=== PATIENT | female | born 1940 | race Caucasian/White ===

== ENCOUNTER 2019-10-07 10:09 | Inpatient (IN) | payer MEDICARE ==
[~2019-10-07] VITALS: Ht 160 cm; Wt 57.3 kg
[~2019-10-07 10:09] MED LIST: AMLO5 PO; ATOR20 PO; Aspir 8181 MG PO; Azor 10-20 MG1 EACH PO; CARV3.125 PO; CITA20 PO; DIAZ2 PO; DILT30 PO; DOCU100 PO; FAMO20 PO; GABA100 PO; GABA300 PO; GLIM4 PO; GLYB5 PO; HYDACE10B PO; LORA.5 PO; LOSA25 PO; METF500 PO; METF500C PO; NAPR500 PO; NIAC500 PO; Norco 5-325 Ta1 EACH PO; OLME20 PO; PRAV10 PO; PSYL5.85P PO
[2019-10-07] MEDS ORDERED: PLAVIX75 MG PO (10:24)
[2019-10-07] MEDS ORDERED: LOSARTAN-HCTZ1 EAC1 PO (10:25)
[2019-10-07] MEDS ORDERED: GABA100 PO (10:25)
[2019-10-07] MEDS ORDERED: Metformin HCl1000 MG PO (10:26)
[2019-10-07 10:42] LABS: BASOPHILS ABSOLUTE AUTO 0.01 K/mm3 (0.00-0.23); BASOPHILS PERCENT AUTO 0 % (0-2); EOSINOPHILS PERCENT AUTO 0 % (0-6); Hematocrit 35.1 % (33.0-51.0); Hemoglobin 10.9 g/dL (11.5-16.0); IMMATURE GRAN ABSOLUTE AUTO 0.01 K/mm3 (0.00-0.10); IMMATURE GRAN PERCENT AUTO 0 % (0-1); LYMPHOCYTES ABSOLUTE AUTO 0.51 K/mm3 (0.84-5.20); LYMPHOCYTES PERCENT AUTO 6 % (21-46); MONOCYTES ABSOLUTE AUTO 0.41 K/mm3 (0.16-1.47); MONOCYTES PERCENT AUTO 5 % (4-13); Mean Corpuscular HGB 24.7 pg (26.0-34.0); Mean Corpuscular HGB Conc 31.1 g/dL (31.5-36.5); Mean Corpuscular Volume 80 fL (80-100); Mean Platelet Volume 10.4 fL (9.1-12.4); NEUTROPHILS PERCENT AUTO 89 % (41-73); Platelet Count 275 K/mm3 (150-400); RDW Standard Deviation 45.9 fL (35.1-46.3); Red Blood Cell Count 4.41 M/mm3 (3.80-5.20); White Blood Cell Count 8.34 K/mm3 (4.00-11.30)
[2019-10-07 11:11] LABS: Alanine Aminotransfer (ALT/SGP 14 U/L (12-78); Albumin, Blood 3.6 g/dL (3.4-5.0); Albumin/Globulin Ratio 0.9 (0.8-1.8); Alk Phos 74 U/L (50-136); Anion Gap 10 mmol/L (6-16); Aspartate Aminotrans (AST/SGOT 16 U/L (12-37); Bilirubin, Total 0.4 mg/dL (0.1-1.0); Blood Urea Nitrogen 25 mg/dL (8-24); Bun/Creatinine Ratio 28.9 (12.0-20.0); CO2, Blood 25 mmol/L (21-32); Calcium, Blood 8.4 mg/dL (8.5-10.1); Chloride, Blood 105 mmol/L (98-108); Creatinine, Blood 0.86 mg/dL (0.40-1.00); Globulin, Blood 3.8 g/dL (2.2-4.0); Glomerular Filtration Rate >60 (60-); Glucose, Blood 109 mg/dL (70-99); Sodium, Blood 140 mmol/L (136-145); Total Protein, Blood 7.4 g/dL (6.4-8.2)
--- NOTE | 2019-10-07 18:13 | NUR ---
ADMIT NOTE RECEIVED REPORT FROM FABIANO SOLORIO IN ED. PT TO ROOM VIA GURNEY; 1 PERSON ASSIST TO BED. PT A&Ox4; FORGETFUL AT TIMES. PT REPORTS SOB; ON 7L O2 VIA OXYMIZER, PT REPORTS HEMOPTOSIS x3 DAYS; STREAKS OF BLOOD IN SPUTUM. SPO2 >90%. PT REPORTS DIZZINESS AND OVERALL NOT FEELING WELL. PT DENIES PAIN; CHEST PAIN/PRESSURE; AND NAUSEA. ELEVATED BP NOTED; NOTIIFED DR TORRES NEW ORDERS FOR ONE TIME DOSE OF NORVASC ENTERED. PT LACTIC ACID CRITICAL HIGH; NOTIFIED DR TORRES; PT HAS ONLY RECEIVED 500CC BOLUS IN ED; ORDERS TO FINISH THIS BAG OF NS AND AN ADDITIONAL 1L NS A ORDERED. OTHER VSS. NO OTHER ACUTE CHANGES NOTED. WILL CONTINUE TO MONITOR UNTIL REPORT GIVEN TO ONCOMING RN.
--- NOTE | 2019-10-07 22:00 | NUR ---
Assumed Care Report from Shaina Biswas RN. Assumed care at approx 1900. Pt is in airborne precautions d/t pending r/o covid-19 and r/o TB. Pt educated by this RN regarding pending tests. Pt on 7L oxymizer upon arrival, sitting in bed breathing even and unlabored, tachypniec at 21 bpm, speaking approx 4 words at a time - unable to speak in full sentences d/t dyspnea. Pt with an occasional cough, nothing productive yet this shift. At rest, pt breathing comfortably at 16 bpm. Other VSS. See shift assessment for detailed systems assessment. Pt is alert and oriented, expressing needs with call light, bed alarm on for safety d/t mild forgetfulness exhibited by pt as she repeats the same question at times and does not recall that questions have been answered previously. No acute concerns to note at start of shift.
--- NOTE | 2019-10-08 00:31 | NUR ---
IV 3 PIV'S PLACED BUT VEIN BLEW WHEN FLUIDS STARTED. POWER GLIDE PLACED TO LEFT UPPER ARM.
[2019-10-08 04:02] LABS: BASOPHILS ABSOLUTE AUTO 0.02 K/mm3 (0.00-0.23); BASOPHILS PERCENT AUTO 1 % (0-2); EOSINOPHILS ABSOLUTE AUTO 0.02 K/mm3 (0.00-0.68); EOSINOPHILS PERCENT AUTO 1 % (0-6); Hematocrit 29.8 % (33.0-51.0); Hemoglobin 9.2 g/dL (11.5-16.0); IMMATURE GRAN ABSOLUTE AUTO 0.01 K/mm3 (0.00-0.10); IMMATURE GRAN PERCENT AUTO 0 % (0-1); LYMPHOCYTES ABSOLUTE AUTO 0.96 K/mm3 (0.84-5.20); LYMPHOCYTES PERCENT AUTO 28 % (21-46); MONOCYTES ABSOLUTE AUTO 0.27 K/mm3 (0.16-1.47); MONOCYTES PERCENT AUTO 8 % (4-13); Mean Corpuscular HGB 24.7 pg (26.0-34.0); Mean Corpuscular HGB Conc 30.9 g/dL (31.5-36.5); Mean Corpuscular Volume 80 fL (80-100); Mean Platelet Volume 10.5 fL (9.1-12.4); NEUTROPHILS ABSOLUTE AUTO 2.17 K/mm3 (1.96-9.15); NEUTROPHILS PERCENT AUTO 63 % (41-73); Platelet Count 228 K/mm3 (150-400); RDW Standard Deviation 46.7 fL (35.1-46.3); Red Blood Cell Count 3.72 M/mm3 (3.80-5.20); White Blood Cell Count 3.45 K/mm3 (4.00-11.30)
[2019-10-08 04:20] LABS: Alanine Aminotransfer (ALT/SGP 11 U/L (12-78); Albumin/Globulin Ratio 0.9 (0.8-1.8); Alk Phos 62 U/L (50-136); Anion Gap 6 mmol/L (6-16); Aspartate Aminotrans (AST/SGOT 13 U/L (12-37); Bilirubin, Total 0.5 mg/dL (0.1-1.0); Blood Urea Nitrogen 17 mg/dL (8-24); Bun/Creatinine Ratio 24.2 (12.0-20.0); CO2, Blood 26 mmol/L (21-32); Calcium, Blood 7.9 mg/dL (8.5-10.1); Chloride, Blood 108 mmol/L (98-108); Globulin, Blood 3.3 g/dL (2.2-4.0); Glomerular Filtration Rate >60 (60-); Glucose, Blood 99 mg/dL (70-99); Potassium, Blood 3.8 mmol/L (3.5-5.5); Sodium, Blood 140 mmol/L (136-145); Total Protein, Blood 6.3 g/dL (6.4-8.2)
--- NOTE | 2019-10-08 05:02 | NUR ---
Shift Summary Pt is in airborne isolation for Rule out COVID-10 and Rule out TB; labs sent. Pt requires 7L Oxymizer for oxygen saturations 90-93%. Overall, pt breathing is even and unlabored. Pt is quite conversive and sometimes becomes SOB with conversation. She also has mild BALDERRAMA going from bed to BSC. Powerglide to MAGDALENE placed tonight, patent and draws morning labs. Pt is alert and oriented, mentation has not changed overnight. Pt with some forgetfulness with direction and education - she repeats the same question to staff regardless of being educated on the answer multiple times and in multiple different ways. She is pleasant and calm. Will continue to monitor
--- NOTE | 2019-10-08 18:43 | NUR ---
SHIFT NOTE PT HAS BEEN RESTING WELL IN BED T/O THE SHIFT. PT TALING IN FULL SENTENCES, DOES HAVE INCREASED DYSPNEA WITH TALKING. SPO2 HAS REMAINED BETWEEN 90-94%, DID NOT TOLERATED WELL A TITRATION DOWN OF 02. PCR AND MRSA OF NARES OBTAINED AND SENT TO LAB. PT REPORTS CHRONIC BACK PAIN THAT HAS BEEN WELL CONTROLLED WITH NORCO X2 TODAY. PT WITH MORE PRONOUNCED CRACKLES IN LT UPPER AND LOWER LOBES WITH FINE CRACKLES NOTED TO RT UPPER LOBES AND DIMNISEHD RT LOWER LOBE. VSS T/O THE DAY. PT IS FORGETFUL, BUT USES CALL LIGHT APPROPRIATELY, TELLS STORIES OF HER YOUTH
[2019-10-08 18:47] LABS: Adenovirus Not Detected (NOT DETECT); Bordetella pertussis Not Detected (NOT DETECT); Chlamydophila pneumoniae Not Detected (NOT DETECT); Coronavirus 229E Not Detected (NOT DETECT); Coronavirus HKU1 Not Detected (NOT DETECT); Coronavirus NL63 Not Detected (NOT DETECT); Coronavirus OC43 Not Detected (NOT DETECT); Human Metapneumovirus Not Detected (NOT DETECT); Human Rhinovirus/Enterovirus Not Detected (NOT DETECT); Influenza A/2009-H1 Not Detected (NOT DETECT); Influenza A/H1 Not Detected (NOT DETECT); Influenza A/H3 Not Detected (NOT DETECT); Influenza B Not Detected (NOT DETECT); Mycoplasma pneumoniae Not Detected (NOT DETECT); Parainfluenza Virus 1 Not Detected (NOT DETECT); Parainfluenza Virus 2 Not Detected (NOT DETECT); Parainfluenza Virus 3 Not Detected (NOT DETECT); Parainfluenza Virus 4 Not Detected (NOT DETECT); Respiratory Syncytial Virus Not Detected (NOT DETECT)
--- NOTE | 2019-10-08 20:19 | NUR ---
Assumed Care Upon initial assessment, pt sitting on edge of bed, tremulous and with apparent anxiety. Pt speaking erratically and without cohesion to sentences. pt fully alert, oriented only to person and date of . When asked for location pt talking about her son and the weather, pt redirected to answer loction question and pt becomes tearful and talks about her family again. Pt unable to tell this RN that she is in hospital. Pt asked about year: she states it's "2000" and when asked about the president, she replies "clinten". When reoriented, pt able to recall correct year and president. after approx 1 minute, pt answers orientation questions as 2000 and that the president is clinten. 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 fleet manager/dispatch aware and call made to Provider for update on pt condition.
--- NOTE | 2019-10-08 21:23 | NUR ---
CALL TO SON, IBIS [phone]. SON UPDATED ON PT'S MENTATION CONDITION. BASELINE PER PT'S SON IS "MY MOM IS SHARP, SHE DOES ALL THE BILLS" PT'S SON ALSO MENTIONED TO THIS RN "I WAS CONCERNED BECAUSE AT 4PM THIS AFTERNOON MY MOM CALLED ME ALL CONFUSED. I THOUGHT MAYBE IT WAS THE MEDICATION SHE WAS TAKING". PROVIDER MADE AWARE OF CONDITION. PT TO CT WITH THIS RN AND PCU AIRCRAFT STEEL FABRICATORFARIHA OBTAINED BY RT
[2019-10-08 21:25] LABS: PCO2 Arterial 32.5 mmHg (35-45); PO2 Arterial 67.6 mmHg (80-100); pH Blood Arterial 7.44 (7.35-7.45)
[2019-10-09 04:11] LABS: Magnesium, Blood 2.3 mg/dL (1.6-2.4)
[2019-10-09 04:30] LABS: Percent Saturation 4.3 % (15.0-50.0); Phosphorus, Blood 4.2 mg/dL (2.5-4.9)
--- NOTE | 2019-10-09 05:20 | NUR ---
Shift Summary Pt remains confused throughout entire shift. Slept approx 3 hrs. Pt set off bed alarm frequently, did not remember to use call light. Pt is overall confused, paranoid, anxious. CT scan completed overnight, ABG completed overnight. provider called multiple times regarding concern for pt mentation status and orders recieved.n Pt oriented only to self. VSS, oxygenation remains at 90-93% on 7L oxymizer. MAGDALENE powerglide s/l, flushes and draws morning labs. See shift assessment and previous notes for updates on events overnight. Will continue to monitor.
[2019-10-09 13:08] LABS: QUANTIFERON MITOGEN VALUE 7.14 IU/mL (.); QUANTIFERON TB1 AG VALUE 0.12 IU/mL (.); QUANTIFERON-TB GOLD PLUS Negative (Negative)
--- NOTE | 2019-10-09 16:30 | NUR ---
SHIFT NOTE PT HAS BEEN ALERT, ANSWERS MOST QUESTIONS APPROPRIATELY IN T/O THE DAY, BUT HAS TO BE EDUCATED NUMEROUS TIMES ABOUT THE SAME TOPIC. PT RECOGNIZED THIS RN UPON RETURNING THIS AM THAT I PROVIDED HER CARE YESTERDAY. PT STS THAT SHE IS SCARED AND CONFUSED THIS AM SHE REMEMBERS BEING TAKEN TO CT "AND PUT IN A BIG MACHINE", PT IS EDUCATED ABOUT CT AND RESULTS, PT LATERS ASKS ABOUT THE CT IN THE NIGHT, DOES NOT RECALL THE EDUCATION SHE RECIEVED FROM EARLIER. PT DOES NOT RECALL THE EVENTS FROM LAST NOC LEADING UP TO GOING TO CT. PT SETS OF HER BED ALARM NUMEROUS TIMES IN THE MORNING, IT IS NOTED THAT PT DOES NOT ATTEMPT TO EXIT THE BED SHE IS REPOSITIONING. BUT PT DOES BECOME UPSET AND ALARMED BY THE BED ALARM AND IS TEARFUL SHE CALLS HER FRIEND LOLA AND ASKS HER TO COME GET HER. THIS RN EDUCATED PT HOW TO SIT IN THE BED TO AVOID ACTIVATING THE BED ALARM, PT DID EXPRESS UNDERSTANDING OF THIS TEACHING AND ONLY ACTIVATED HER BED ALARM A FEW OTHER TIMES T/O THE DAY, SHE FORGOT TO USE HER CALL LIGHT TO USE THE BEDSIDE COMMODE. PT WAS VERY ANXIOUS THIS AM, SHE WAS REDIRECTED WELL WITH VERBAL REASSURANCE. O2 IS DECREASED TO 3L WHICH IS TOLERATED WELL, PER DR MEHTA SPO2 SHALL BE AT 88% OR GREATER. PT WAS GIVEN XANEX FOR ANXIETY WHICH WAS TOLERATED WELL, PT DID SLEEP IN THE AFTERNOON AND APPEARED TO HAVE HAD RESTFUL SLEEP.
--- NOTE | 2019-10-09 17:38 | NUR ---
O2 TITRATED TO 2L
--- NOTE | 2019-10-10 03:24 | NUR ---
COVID-19 results are negative.
[2019-10-10 04:40] LABS: BASOPHILS ABSOLUTE AUTO 0.01 K/mm3 (0.00-0.23); BASOPHILS PERCENT AUTO 0 % (0-2); EOSINOPHILS PERCENT AUTO 0 % (0-6); Hematocrit 33.3 % (33.0-51.0); Hemoglobin 10.4 g/dL (11.5-16.0); IMMATURE GRAN ABSOLUTE AUTO 0.01 K/mm3 (0.00-0.10); IMMATURE GRAN PERCENT AUTO 0 % (0-1); LYMPHOCYTES ABSOLUTE AUTO 1.03 K/mm3 (0.84-5.20); LYMPHOCYTES PERCENT AUTO 22 % (21-46); MONOCYTES ABSOLUTE AUTO 0.57 K/mm3 (0.16-1.47); MONOCYTES PERCENT AUTO 12 % (4-13); Mean Corpuscular HGB 24.1 pg (26.0-34.0); Mean Corpuscular HGB Conc 31.2 g/dL (31.5-36.5); Mean Platelet Volume 10.2 fL (9.1-12.4); NEUTROPHILS ABSOLUTE AUTO 3.11 K/mm3 (1.96-9.15); NEUTROPHILS PERCENT AUTO 66 % (41-73); Platelet Count 280 K/mm3 (150-400); RDW Coefficient Variation 15.8 % (11.7-14.2); RDW Standard Deviation 44.5 fL (35.1-46.3); Red Blood Cell Count 4.32 M/mm3 (3.80-5.20); White Blood Cell Count 4.73 K/mm3 (4.00-11.30)
[2019-10-10 04:41] LABS: Mean Corpuscular Volume 77 fL (80-100)
[2019-10-10 04:58] LABS: Alanine Aminotransfer (ALT/SGP 13 U/L (12-78); Albumin, Blood 3.3 g/dL (3.4-5.0); Albumin/Globulin Ratio 0.9 (0.8-1.8); Alk Phos 59 U/L (50-136); Anion Gap 10 mmol/L (6-16); Aspartate Aminotrans (AST/SGOT 14 U/L (12-37); Bilirubin, Total 0.4 mg/dL (0.1-1.0); Blood Urea Nitrogen 23 mg/dL (8-24); Bun/Creatinine Ratio 26.7 (12.0-20.0); CO2, Blood 25 mmol/L (21-32); Calcium, Blood 8.8 mg/dL (8.5-10.1); Chloride, Blood 102 mmol/L (98-108); Creatinine, Blood 0.86 mg/dL (0.40-1.00); Globulin, Blood 3.8 g/dL (2.2-4.0); Glomerular Filtration Rate >60 (60-); Glucose, Blood 108 mg/dL (70-99); Potassium, Blood 3.9 mmol/L (3.5-5.5); Sodium, Blood 137 mmol/L (136-145); Total Protein, Blood 7.1 g/dL (6.4-8.2)
--- NOTE | 2019-10-10 05:55 | NUR ---
Shift Summary Pt alert this shift. Oriented to person, date of , year, and president. Pt not oriented to location, sets off bed alarm frequently and is forgetful. No paranoia noted this shift. Xanex given with noc medications per pt request and pt able to sleep approx 7 hours. Pt voiding well this shift. VSS. She is SBA and moderately stable on feet with transfers. Overall, pt had an uneventful night. no changes on telemetry. Bed alarm has been on all shift for safety, pt redirected multiple times without successful following of directions. Pills whole with water. No acute changes to initial shift assessment.
--- NOTE | 2019-10-10 08:47 | NUR ---
AM NOTE... ASSUMED CARE OF PT APROX 0700. PT IS A&Ox4 WITH MOMENTS OF FORGETFULNESS. PT'S VS STABLE AT THIS TIME, SHE IS ON 2L NC WITH O2 SATS>88% AT REST. L/S CLEAR T/O A LITTLE COARSE IN THE BASES. NO EDEMA NOTED ON ASSESSMENT. BT PRESENT AND NORMOACTIVE. PT IS VERY ANXIOUS TO D/C HOME TODAY TO HELP TAKE CARE OF HER HORSES. PT IS SBA TO THE BSC OR BATHROOM. CALL LIGHT IN REACH WILL CONTINUE TO MONITOR
--- NOTE | 2019-10-10 09:50 | NUR ---
Per Dr. Sánchez, the pt needs to have the home O2 evaluation done before discharge.
[2019-10-10] MEDS ORDERED: ALBU2.5V5 INH (10:40)
[2019-10-10] MEDS ORDERED: AZIT500 PO (10:45)
[2019-10-10] MEDS ORDERED: FERSU300 PO (10:48)
[2019-10-10] MEDS ORDERED: Duoneb 2.5-0.5 M3 ML INH (10:48)
[2019-10-10] MEDS ORDERED: CEFP200 PO (10:49)
[2019-10-10] MEDS ORDERED: PRED20 PO (10:49)
--- NOTE | 2019-10-10 14:12 | NUR ---
PT D/C HOME... PT D/C'D HOME WITH HER SON. PT DISCHARGE AND NEW MEDICATION EDUCATION WAS PROVIDED TO THE PT AND HER SON, BOTH VERBALIZED THIER UNDERSTANDING. POWERGLIDE WAS REMOVED WNL. ALL OF PT'S BELONGINGS PACKED AND SENT WITH THE PT. PRIOR TO THE PT'S D/C HER NEW MEDICATIONS WERE CALLED INTO HER PHARMACY OF CHOICE, PER THE PHARMACY IT WAS GOING TO CLOSE AT 1300 AND NOT BE OPEN THE NEXT DAY , THE PT'S SON WAS NOT GOING TO BE AVAILABLE TO PICK HER UP BEFORE 1400. IT WAS OFFERED TO THE PT THAT WE WOULD CALL ANOTHER PHARMACY FOR HER MEDICATIONS THAT WOULD STILL BE OPEN BY THE TIME HER SON WAS AVAILABLE TO COME PICK HER UP. THIS RN AND THE TOP BOTTOM ATTACHING MACHINE OPERATOR OFFERED TO CALL THE SON AND TO HELP MAKE OTHER ARRAINGMENTS BECAUSE IT WAS IMPORTANT THAT THE PT GET HER NEW ANTIBIOTICS AND OTHER MEDICATIONS. PT STATED HER UNDERSTANDING, DID NOT WANT STAFF TO CONTACT HER SON AND SAID SHE WOULD DO SO HERSELF. APROX 10 MINUTES LATER THE PT CALLED THE EDUCATION DIAGNOSTICIAN INTO THE ROOM AND TOLD HER "ITS OKAY MY NEIGHBOR IS GOING TO LAND INSPECTOR MY NEW PILLS FOR ME." DURING DISCHARGE EDUCATION WITH THE SON THE SON MADE THE COMMENT "MOM I'LL GO INTO TOWN ON SATURDAY AND LAND INSPECTOR YOUR NEW PILLS." THIS RN STATED "I WAS UNDER THE IMPRESSION THAT THE NEIGHBOR WAS GOING TO LAND INSPECTOR HER MEDICATIONS." THE SON THEN SATED "OH NO SHE'LL BE FINE UNTIL SATURDAY." THIS RN ATTEMPTED TO EDUCATE THE PT AND SON ON THE IMPORTANCE OF TAKING MEDICATIONS DIRECTED AND NOT SKIPPING DOSES OVER SEVERAL DAYS. BOTH STATED THEIR UNDERSTANDING AND LEFT.
== END 2019-10-10 13:48 | disposition home or self-care (01) | DRG 871 ==
LOC: ER 10:09 → ERHOLD 11:50 → PCU 11:50
PROVIDERS: Emergency Medicine; Hospitalist; Internal Medicine Pulmonary Disease; Nurse Practitioner Acute Care; ADMIT Family Medicine
PROC: 8E0ZXY6 Isolation (ICD-10-PCS; principal; 2019-10-07)
DX: A41.9 Sepsis, unspecified organism (principal); J96.20 Acute and chronic respiratory failure, unspecified whether with hypoxia or hypercapnia; J18.9 Pneumonia, unspecified organism; G93.40 Encephalopathy, unspecified; R65.20 Severe sepsis without septic shock; E78.00 Pure hypercholesterolemia, unspecified; Z96.653 Presence of artificial knee joint, bilateral; Z87.891 Personal history of nicotine dependence; E11.42 Type 2 diabetes mellitus with diabetic polyneuropathy; E11.51 Type 2 diabetes mellitus with diabetic peripheral angiopathy without gangrene; J98.4 Other disorders of lung; J43.2 Centrilobular emphysema; G89.29 Other chronic pain; M48.00 Spinal stenosis, site unspecified; D50.9 Iron deficiency anemia, unspecified; F41.9 Anxiety disorder, unspecified; Z79.84 Long term (current) use of oral hypoglycemic drugs; C80.1 Malignant (primary) neoplasm, unspecified
CPT/HCPCS: 0099U; 36415; 36600; 70450; 71045; 80053; 82607; 82728; 82746; 82803; 82947; 83540; 83550; 83605; 83735; 84100; 85025; 86480; 87040; 93005; 93010; 94640; 94760; 94761; 94762; 96361; 96365; 96367; 96372-59; 99285-25; A9270-GY; C1751; J0456; J0696; J1650; J2916; J7030; J7050; J7512; U0003

== ENCOUNTER 2019-11-21 05:27 | Inpatient (IN) | payer MEDICARE ==
[~2019-11-21] VITALS: Ht 160 cm; Wt 53.0 kg
[~2019-11-21 05:27] MED LIST changes: +ALBU2.5V5 INH; +AZIT500 PO; +CEFP200 PO; +Duoneb 2.5-0.5 M3 ML INH; +FERSU300 PO; +LOSARTAN-HCTZ1 EAC1 PO; +PLAVIX75 MG PO; +PRED20 PO
[2019-11-21 05:46] LABS: PCO2 Arterial 36.4 mmHg (35-45); PO2 Arterial 111 mmHg (80-100); pH Blood Arterial 7.44 (7.35-7.45)
[2019-11-21 05:52] LABS: BASOPHILS ABSOLUTE AUTO 0.03 K/mm3 (0.00-0.23); BASOPHILS PERCENT AUTO 1 % (0-2); EOSINOPHILS ABSOLUTE AUTO 0.06 K/mm3 (0.00-0.68); EOSINOPHILS PERCENT AUTO 1 % (0-6); Hemoglobin 11.7 g/dL (11.5-16.0); IMMATURE GRAN ABSOLUTE AUTO 0.01 K/mm3 (0.00-0.10); IMMATURE GRAN PERCENT AUTO 0 % (0-1); LYMPHOCYTES ABSOLUTE AUTO 1.18 K/mm3 (0.84-5.20); LYMPHOCYTES PERCENT AUTO 26 % (21-46); MONOCYTES ABSOLUTE AUTO 0.35 K/mm3 (0.16-1.47); MONOCYTES PERCENT AUTO 8 % (4-13); Mean Corpuscular HGB 24.7 pg (26.0-34.0); Mean Corpuscular Volume 83 fL (80-100); Mean Platelet Volume 10.2 fL (9.1-12.4); NEUTROPHILS ABSOLUTE AUTO 2.95 K/mm3 (1.96-9.15); NEUTROPHILS PERCENT AUTO 64 % (41-73); Platelet Count 270 K/mm3 (150-400); RDW Coefficient Variation 18.8 % (11.7-14.2); RDW Standard Deviation 56.5 fL (35.1-46.3); Red Blood Cell Count 4.73 M/mm3 (3.80-5.20); White Blood Cell Count 4.58 K/mm3 (4.00-11.30)
[2019-11-21 06:14] LABS: Alanine Aminotransfer (ALT/SGP 14 U/L (12-78); Albumin, Blood 3.3 g/dL (3.4-5.0); Albumin/Globulin Ratio 0.9 (0.8-1.8); Alk Phos 65 U/L (50-136); Anion Gap 8 mmol/L (6-16); Aspartate Aminotrans (AST/SGOT 16 U/L (12-37); Bilirubin, Total 0.4 mg/dL (0.1-1.0); Blood Urea Nitrogen 26 mg/dL (8-24); Bun/Creatinine Ratio 25.5 (12.0-20.0); CO2, Blood 27 mmol/L (21-32); Calcium, Blood 8.3 mg/dL (8.5-10.1); Chloride, Blood 104 mmol/L (98-108); Creatinine, Blood 1.02 mg/dL (0.40-1.00); Globulin, Blood 3.7 g/dL (2.2-4.0); Glomerular Filtration Rate 55 (60-); Glucose, Blood 175 mg/dL (70-99); Magnesium, Blood 1.7 mg/dL (1.6-2.4); Potassium, Blood 3.9 mmol/L (3.5-5.5); Sodium, Blood 139 mmol/L (136-145); Troponin I <0.015 ng/mL (0.000-0.040)
--- NOTE | 2019-11-21 11:15 | NUR ---
[place] of Care: Patient arrived from ED at 1045hr, via stretcher, accompanied by ED nurse. Patient sleeping on arrival, but easily roused to verbal stimuli, oriented x4. Arrived on BiPAP at 12/8/60%, spO2-98-100%. Patient appeared comfortable on BiPAP and denies dyspnea/SOB, stating breathing "feels better". Attempted to remove BiPAP approx 30min after arrival and placed patient on 10L/high-flow NC. Patient remained comfortable, denies SOB, but SpO2 decreased to mid 80's. Patient then placed back on BiPAP at 12/5/45%, spO2 increased to 96%. Lazaro cath placed approx 1hr after arrival to unit, draining clear yellow urine. Peripheral IV x1 to lt AC patent and intact. Denies pain or discomfort, sleeping when not stimulated by staff. Dr. Putnam consulted per Dr. Klein. Dr. Putnam in to see patient shortly after arrival to unit. No new orders received at that time. Plan to maintain use of BiPAP at this time with breaks as tolerated. Will continue to monitor.
[2019-11-21 11:31] LABS: Source, Urine Catheter
[2019-11-21 11:40] LABS: Appearance, Urine Clear (Clear); Bilirubin, Urine Neg (Neg); Blood, Urine Neg (Neg); Color, Urine Yellow (P-Yellow); Glucose Qualitative, Urine Neg (Neg); Ketones, Urine Neg (Neg); Leukocyte Esterase, Urine Neg (Neg); Nitrite, Urine Neg (Neg); Protein, Urine Neg (Neg); Specific Gravity, Urine 1.015 (1.003-1.022); Urobilinogen, Urine NORM (Normal)
[2019-11-21] MEDS ORDERED: KEFLEX500 MG PO (12:42)
--- NOTE | 2019-11-21 12:51 | NUR ---
echocardiogram complete
--- NOTE | 2019-11-21 15:16 | NUR ---
Pt resting in bed and wearing BIPAP. Pt is A&OX4 and denies pain at this time. Engaged in therapeutic discussion regarding plan of care. Explored reasons for Pt not wanting pursue biopsy. Pt states "If I'm opened up, it will cause it to spread". Educated Pt on procedure could possibly done with bronchoscopy. Pt asks "what would you do". Explained to Pt this RN is not in her position and could not provide an apprpriate answer. Continued therapeutic listening and continued to explore fears. Offered emotional support as Pt is tearful throughout visit. Discussed options such hospice, pursuing biopsy to determine cancer treatment options or maintaining status quoe. Pt reports she would like to pursue biopsy. Continued therapeutic listening. Pt expresses appreciation of visit. Spoke with Bedside RN Jair, discussed case and Pt's decision to pursue biopsy. Jair reports decision will be relayed to Intesivist. Called and spoke with Pt's son Hakan. Updated Hakan on plan of care and Pt's decision to pursue biopsy. Hakan expresses appreciation of call and reports plan to visit with Pt a little later today. Palliative Care will remain available for therapeutic visits.
--- NOTE | 2019-11-21 18:36 | NUR ---
Shift Summary: No significant changes throughout remainder of shift. Patient able to tolerate short breaks from BiPAP, approx 15-20min. Patient continues to deny dyspnea/SOB and appear comfortable while off BiPAP, but spO2 decreases to mid 80's, on 10-15L per high-flow NC. BiPAP settings remain at 12/5/45-50%. X1 prn Ativan given this evening for anxiety r/t BiPAP mask, good effect noted. Peripheral IV remains patent and intact, infusing without difficulty. Lzaaro cath remains patent and intact, draining clear yellow urine. Tolerates PO water without difficulty. Sleeping at this time and appears comfortable. Will continue to monitor until report to NOC shift RN.
--- NOTE | 2019-11-21 20:04 | NUR ---
ASSUMED PT CARE FROM SHELLY RN AT 1915 PT SITTING UPRIGHT IN BED WITH BIPAP IN PLACE; 05/08; FIO2 45%. PT TOLERATING WELL, BUT REQUESTING WATER AND BIPAP BREAK. RT AT BEDSIDE GIVING BREATHING TREATMENT THROUGH BIPAP AT TIME OF REQUEST; THEREFORE, BREAK GIVEN AFTER TREATMENT WAS COMPLETE. PT PLACED ON HIFLOW NC AT 15L WITH OXYGEN SATURATIONS 85-89%. PT COUGHING UP COPIOUS AMOUNTS OF THIN, WHITE SECRETIONS. LUNG SOUNDS ARE NOTED TO HAVE INSPIRATORY CRACKLES T/O ALL LOBES. PT NOTED TO BE NSR WITH HR 70'S; BP'S STABLE, SEE FLOWSHEET. VACA CATHETER IS PATENT AND DRAINING CLEAR, YELLOW URINE TO GRAVITY. PT GIVEN APPROXIMATELY 15 MINUTE BREAK FROM BIPAP FOR ORAL CARE, HS MEDS, AND WATER BREAK. PLACED BACK ON BIPAP WITH SAME SETTINGS; BIOX LOW 90'S. PT VERY EMOTIONAL REGARDING NEW DX OF LUNG CANCER. ASKING IF SHE CAN GO HOME AFTER HER BIOPSY. INFORMED PT THAT THERE IS ALWAYS THE POSSIBILITY FOR COMPLICATIONS WITH ANY PROCEDURE; NONETHELESS, HER OXYGEN REQUIREMENTS ARE TOO HIGH AT THIS POINT TO BE ABLE TO GO HOME. PT APPEARS VERY FEARFUL AND ANXIOUS REGARDING NEW DX. CALL LIGHT LEFT WITHIN REACH. PT ABLE TO MAKE HER NEEDS KNOWN. VERY PLEASANT AND COOPERATIVE WITH CARES.
--- NOTE | 2019-11-22 02:53 | NUR ---
UPDATE CALL OUT TO DR. TARANGO IN REGARDS TO RECEIVING ORDERS FOR AIRVO. PT TOLERATED BIPAP LONG SHE COULD, BUT STARTED ASKING FOR MORE FREQUENT BREAKS. OXYGEN SATURATIONS WEREN'T MAINTAINING ON HIFLOW NC AT 15L. THEREFORE, REQUESTED AIRVO FOR BREAKS INSTEAD. PT IS CURRENTLY AT 50L AND 82% WITH BIOX AT 92%. PT VERY GRATEFUL AND MORE COMFORTABLE. WILL CONTINUE TO MONITOR NEURO STATUS. PT CONTINUING TO COUGH UP COPIOUS AMOUNTS OF THIN WHITE SECRETIONS. LUNG SOUNDS REMAIN COARSE RALES T/O ALL LOBES.
[2019-11-22 03:45] LABS: BASOPHILS ABSOLUTE AUTO 0.01 K/mm3 (0.00-0.23); BASOPHILS PERCENT AUTO 0 % (0-2); EOSINOPHILS ABSOLUTE AUTO 0.05 K/mm3 (0.00-0.68); EOSINOPHILS PERCENT AUTO 1 % (0-6); Hematocrit 35.1 % (33.0-51.0); Hemoglobin 10.6 g/dL (11.5-16.0); IMMATURE GRAN ABSOLUTE AUTO 0.01 K/mm3 (0.00-0.10); IMMATURE GRAN PERCENT AUTO 0 % (0-1); LYMPHOCYTES ABSOLUTE AUTO 0.86 K/mm3 (0.84-5.20); LYMPHOCYTES PERCENT AUTO 16 % (21-46); MONOCYTES ABSOLUTE AUTO 0.52 K/mm3 (0.16-1.47); MONOCYTES PERCENT AUTO 10 % (4-13); Mean Corpuscular HGB 25.1 pg (26.0-34.0); Mean Corpuscular HGB Conc 30.2 g/dL (31.5-36.5); Mean Corpuscular Volume 83 fL (80-100); Mean Platelet Volume 10.2 fL (9.1-12.4); NEUTROPHILS ABSOLUTE AUTO 3.88 K/mm3 (1.96-9.15); NEUTROPHILS PERCENT AUTO 73 % (41-73); Platelet Count 253 K/mm3 (150-400); RDW Standard Deviation 57.2 fL (35.1-46.3); Red Blood Cell Count 4.23 M/mm3 (3.80-5.20); White Blood Cell Count 5.33 K/mm3 (4.00-11.30)
[2019-11-22 04:03] LABS: Albumin, Blood 2.8 g/dL (3.4-5.0); Anion Gap 6 mmol/L (6-16); Blood Urea Nitrogen 18 mg/dL (8-24); Bun/Creatinine Ratio 19.1 (12.0-20.0); CO2, Blood 28 mmol/L (21-32); Calcium, Blood 8.1 mg/dL (8.5-10.1); Chloride, Blood 105 mmol/L (98-108); Creatinine, Blood 0.94 mg/dL (0.40-1.00); Glomerular Filtration Rate >60 (60-); Glucose, Blood 99 mg/dL (70-99); Magnesium, Blood 1.9 mg/dL (1.6-2.4); Phosphorus, Blood 3.9 mg/dL (2.5-4.9); Potassium, Blood 4.2 mmol/L (3.5-5.5); Sodium, Blood 139 mmol/L (136-145)
--- NOTE | 2019-11-22 06:40 | NUR ---
END OF SHIFT SUMMARY PT TOLERATING AIRVO MUCH BETTER THAN BIPAP. AIRVO CURRENTLY AT 50L WITH 75% FIO2; BIOX REMAINS LOW 90'S. PT IS ALERT AND ORIENTED AND ABLE TO MAKE NEEDS KNOWN. APPEARS FORGETFUL AT TIMES SHE WAS NOTED TO REPEATEDLY ASK THE SAME QUESTIONS A FEW TIMES. LUNG SOUNDS REMAIN COARSE RALES T/O WITH PRODUCTIVE COUGH; PRODUCING COPIOUS AMOUNTS OF THIN WHITE SECRETIONS. PT HAS BEEN IN NSR HR 70'S; BP'S STABLE, SEE FLOWSHEET. NS WITH 20KCL INFUSING AT 75MLS/HR VIA PERIPHERAL IV. VACA CATHETER REMAINS PATENT AND DRAINING CLEAR, YELLOW URINE TO GRAVITY. PT REMAINS EMOTIONAL REGARDING LUNG CANCER DX AND FEARFUL OF THE UNKNOWN. ENCOURAGED HER TO TAKE IT STEP BY STEP AND DAY BY DAY. SHE CONTINUES TO ASK ABOUT GOING HOME; HOWEVER, ALSO WANTING TO GET TREATMENT. SHE APPEARS TO BE CONFUSED REGARDING PROCESSES'S; THEREFORE, MAY NEED PROCEDURES AND PROCESSES'S EXPLAINED IN LAYMENS TERMS. REITERATED HER HIGH OXYGEN REQUIREMENT AT THIS TIME AND HOW SHE WOULD NOT BE ABLE TO GO HOME WITH HOW MUCH OXYGEN AND FLOW SHE IS CURRENTLY REQUIRING. PT APPEARS TO UNDERSTAND, BUT THEN WILL ASK THE SAME QUESTIONS AGAIN. REPORT HANDED OFF TO FABIANO BRAVO. PT HAS CALL LIGHT WITHIN REACH AND IS ABLE TO MAKE HER NEEDS KNOWN.
--- NOTE | 2019-11-22 08:34 | NUR ---
[place] of Care: Care assumed at 0700hr. Patient A/O x4, sitting upright in bed watching tv. Denies pain, discomfort, SOB, or dyspnea. VSS, spO2-95-97% on Airvo NC at 55L/70%. Will titrate FiO2 down as tolerated. Peripheral IV's x2 to lt arm patent and intact. Ate approx 50% of breakfast and tolerated PO water with medications without difficulty. Lazaro cath patent and intact, draining clear yellow urine. Plan to discuss possible bronchoscope (r/t diagnostic for lung cancer) with Dr. Putnam this morning, as patient stated yesterday that she was willing to receive bronchoscope. Call light in reach, makes needs known. Will continue to monitor.
--- NOTE | 2019-11-22 14:43 | NUR ---
Spoke with Dr Putnam and discussed case. Dr Putnam had discussion with Pt regarding goals of care. Pt does not want biopsy and would like to focus on comfort at home. Pt resting in bed upon arrival. Currently on Airvo and denies pain at this time. Engaged in therapeutic discussion regarding hospice and her not wanting biopsy or cancer treatment. Educated on hospice philosphy with V/U made by Pt. Discussed the importance of including her son Hakan in this decision and received verbal permission to call Hakan from Pt. Discussed hospice agencies to choose from. Pt chooses [facility]. Spoke with Dr Klein and discussed case. Dr Klein visits with Pt and confirms Pt's wishes for hospice. Dr Klein attempts to call son Hakan with no success. Spoke with Bedside RN Jair and discussed case. This RN attempted to contact beryl Mcclendon at a later time and left message with request for a return phone call. Attempted both numbers listed. One number does not have option to leave message. Palliative Care will remain available for supportive therapeutic visits.
--- NOTE | 2019-11-22 16:22 | NUR ---
Several visits with Pt today. Pt has friend Nora visiting this afternoon. With Pt's permission Bedside RN and this RN discussed Pt's wishes and plan for hospice with Nora. Re-enforced education on hospice philosophy with V/U made by Pt. Pt is wanting to go home tomorrow. Discussed the need to place hospice referral and equipment to be set up in home prior to returning home. Discussed code status with Pt and Pt reports that she does not want to be resuscitated or intubated. Pt chooses to be DNR and states "just let me go". Called and spoke with Pt's son Hakan. Discussed Pt's wishes for hospice and not wanting to have biopsy or to pursue cancer treatement. Initialy Hakan did not appear to be on board with Pt's decision. After exploring his fears and discussing the importance of Pt's wishes Hakan is leaning towards supporting Pt's decision. Hakan plans to call Pt to make sure this is what she wants and will call Pt's friend Nora to determine her thoughts. Instructed Hakan hospice referral will be placed for [facility] per Pt's wishes. Hakan reports no other concerns and expresses appreciation of call. Spoke with Bedside RN Jair and discussed case. Jair will call Dr Putnam and relay Pt's wishes to be DNR. Placed Hospice Referral order. Palliative Care will remain available for therapeutic visits.
--- NOTE | 2019-11-22 17:22 | NUR ---
Transfer to PCU: Received bed assignment, PCU-14. Report called to Gosia Rn in PCU. Patient transferred to PCU 14 via ICU bed with assistance of RT and PCT. Transferred and settled in to PCU bed without difficulty. Belongings sent with patient to new room.
--- NOTE | 2019-11-23 02:39 | NUR ---
ASSUMED CARE OF PATIENT AT 1915. PATIENT ALERT AND ORIENTED ON ASSESSMENT. WHEEZING AND DIMINISHED LUNG SOUNDS NOTED ON AUSCULTATION. COMPLAINING OF DYSPNEA ON EXERTION. PATIENT ON HIGH FLOW NASAL CANNULA AT BEGINNING OF SHIFT. PLACED ON BIPAP DUE TO DESATURATION DURING SLEEP. CURRENTLY ON BIPAP. PATIENT WITH VACA IN PLACE. PATIENT STATES THAT SHE HAS HAD IMPROVEMENT IN BREATHING WITH BREATHING TREATMENTS. CALL LIGHT IN REACH OF PATIENT. BED LOWERED TO LOWEST POSITION. WILL CONTINUE TO MONITOR.
--- NOTE | 2019-11-23 07:45 | NUR ---
AM ASSESSMENT: Pt resting in bed. States that she is feeling good and is very hopeful to be discharged home with hospice today. Pt on airvo 50L, 70%. Will attempt to titrate. Lazaro cath draining clear yellow urine. HR reg. BT positive. Pulses strong. Denies needs. Denies pain. Call light in reach. Will monitor.
--- NOTE | 2019-11-23 10:30 | NUR ---
Pt very hopeful to go home. Pt currently on 15L per high flow NC. Biox 85-90%. Pt appears comfortable and states that she feels like she is breathing fine. Pt got up to Chair with one person moderate assist. States that she is very comfortable in her chair. Call light in reach. Will continue to monitor.
--- NOTE | 2019-11-23 13:37 | NUR ---
Plan to discharge tomorrow with home hospice. Pt back to bed resting with one person assist. Denies needs. Call light in reach. Will monitor.
--- NOTE | 2019-11-23 15:16 | NUR ---
Spiritual care visit conducted. Patient immediately shares her hospice diagnosis, her concerns for her son after she passes, and her spiritual journey. Patient repeats herself several times in the 40 minute visit. I quote inspiring Bible verses that are in line with patient's belief system and each time she repeats her concerns I point her to new scriptures. Patient gets very tearful when she talks of being reunited with loved ones in heaven and when talking about how her son will handle things. I provide therapeutic listening, recitation of scriptures and prayer. [facility] also [facility] Jerry, with permission of patient, and ask him to pay close attention to patient's son. I then return to patient and tell her that Jerry has agreed to check in with her as soon as she is admitted to hospice and that he will watch over patient's son as much as son allows.
--- NOTE | 2019-11-23 17:32 | NUR ---
Shift Summary: Pt Sitting at edge of bed. States that she is feeling good. Very anxious to be discharged home tomorrow with hospice. Pt has done well today. Titrated oxygen down to 11L per NC. Pt tolerating well. Was able to get up with one person moderate assist to chair and back to bed. Other VSS. Lazaro cath draining clear yellow urine throughout the shift. Call light in reach. will monitor. Stable at end of shift. Will report to night RN.
--- NOTE | 2019-11-23 22:48 | NUR ---
UPDATE PATIENT PLEASENT AND COOPERATIVE TONIGHT. PATIENT MEDICATED FOR NAUSEA X 1. PATIENT STATED SHE ATE DINNER AND HASEN'T EATEN MUCH FOR SEVERAL DAYS AND SHE THINKS THATS WHY SHE'S NAUSOUS. PATIENT CURRENTLY APPEARS TO BE ASLEEP AT THIS TIME. CALL LIGHT WITHIN REACH.
--- NOTE | 2019-11-24 05:49 | NUR ---
SHIFT SUMMARY PATIENT PLEASENT AND COOPERATIVE THROUGHOUT THE NIGHT. PATIENT APPEARED TO SLEEP WELL THROUGHOUT THE NIGHT LAST NIGHT WITH NO COMPLAINTS OF PAIN. IV ABX GIVEN PER ORDERS. PATIENT REMAINS ON 11L O2 VIA HIGH FLOW NASAL CANNULA. PATIENT CURRENTLY APPEARS TO BE ASLEEP. WILL CONTINUE TO MONITOR PATIENT AND REPORT TO ONCOMING RN.
--- NOTE | 2019-11-24 10:24 | NUR ---
Pt sitting on edge of bed. Pt reports feeling excited about going home. Pt denies pain and dyspnea at this time. Spoke with Josefina [facility] Joann Saini, [place] Care Manager Adrianna, and Bedside RN Cristal. Discussed case and plan. Pt will D/C home today with [facility]. Palliative Care will remain available.
[2019-11-24] MEDS ORDERED: Ventolin5 MG/1 ML INH (10:32)
[2019-11-24] MEDS ORDERED: ACET325 PO (10:33)
[2019-11-24] MEDS ORDERED: FLUTICASONE-SA1 EAC1 INH (10:35)
[2019-11-24] MEDS ORDERED: DESGEN DM LIQU PO (10:36)
[2019-11-24] MEDS ORDERED: LORA.5 PO (10:37)
[2019-11-24] MEDS ORDERED: LOSA50 PO (10:38)
--- NOTE | 2019-11-24 12:53 | NUR ---
Spiritual care visit conducted. Patient is sitting on EOB and alert. Patient tells me about her restful sleep last night, about her excitement to DC and about her need to set things up for her son, Hakan to take over the bills. Patient seems much more clear and does not repeat herself once during the visit. I listen empathically and provide prayer. Patient responds well and shows signs of improved hope and peace about the days ahead.
--- NOTE | 2019-11-24 17:56 | NUR ---
PCU DISCHARGE SUMMARY PATIENT ALERT AND ORIENTED TO SELF, LOCATION AND SITUATION. RESPIRATIONS E/U AT REST. LABORED WITH EXCERTION. PATIENT ON 11 LPM VIA HIGH FLOW CANNULA. FURTHER VSS. PATIENT DISCHARGED HOME WITH HOSPICE. OXYGEN TANKS DELIVERED FROM [employer]. DISCUSSED DISCHARGE INSTRUCTIONS AND MEDICATIONS WITH PATIENT AND HER SON. PATIENT LEFT UNIT VIA WHEELCHAIR HOME WITH BELONGINGS IN NO ACUTE DISTRESS.
== END 2019-11-24 12:52 | disposition hospice, home (50) | DRG 193 ==
LOC: ER 05:27 → MEDS 07:38 → ICUW 07:38 → PCU 11-22 17:33
PROVIDERS: Emergency Medicine; ADMIT Internal Medicine Gastroenterology
PROC: 5A09357 Assistance with Respiratory Ventilation, Less than 24 Consecutive Hours, Continuous Positive Airway Pressure (ICD-10-PCS; principal; 2019-11-21)
DX: J18.9 Pneumonia, unspecified organism (principal); J96.01 Acute respiratory failure with hypoxia; J96.02 Acute respiratory failure with hypercapnia; Z79.84 Long term (current) use of oral hypoglycemic drugs; Z51.5 Encounter for palliative care; E11.42 Type 2 diabetes mellitus with diabetic polyneuropathy; Z96.653 Presence of artificial knee joint, bilateral; Z87.891 Personal history of nicotine dependence; Z79.02 Long term (current) use of antithrombotics/antiplatelets; E78.00 Pure hypercholesterolemia, unspecified; E11.51 Type 2 diabetes mellitus with diabetic peripheral angiopathy without gangrene; G89.4 Chronic pain syndrome; J43.2 Centrilobular emphysema; I10 Essential (primary) hypertension
CPT/HCPCS: 36415; 36600; 71045; 80053; 80069; 81003; 82803; 82947; 83735; 83880; 84145; 84484; 85025; 93005; 93010; 93306; 94640; 94660; 94664; 94760; 94762; 96365; 96368; 96375; 98960; 99285-25; A9270-GY; J1650; J1956; J2060; J2405; J2543; J3480; J7050; U0002